=== PATIENT | female | born 1995 | race Caucasian/White ===

== ENCOUNTER 2017-03-09 14:48 | Emergency (ER) | payer MEDICAID, OTHER ==
--- NOTE | 2017-03-09 16:20 | RAD ---
Indication: Fall, back pain. 5 views of the lumbar spine demonstrates straightening of the normal lordosis. Disc spaces all well-preserved. No fracture is noted. IMPRESSION: Straightening of the normal lordosis without fracture.
--- NOTE | 2017-03-09 16:45 | UC ---
Michel Burger Thomas, scribed for Lamont Crooks MD on 03/09/17 at 1607 . Back Pain HPI - HPI Summary HPI Summary: The patient is a 21 year old female who presents at urgent care with pain in the lower back and tail bone after slipping and falling about six days ago. Pain is aggravating by defecation. The patient denies bladder/bowel incontinence , weakness of the legs, and abdominal pain. - History of Current Complaint Chief Complaint: UCBackPain Stated Complaint: BACK INJURY Time Seen by Provider: 03/09/17 15:58 Hx Obtained From: Patient Hx Last Menstrual Period: 02/16/2017 Onset/Duration: Sudden Onset, Lasting Days - about 6 days ago, Still Present, Worse Since Timing: Constant Severity Initially: Moderate Severity Currently: Moderate Pain Scale Used: 0-10 Numeric Associated Signs And Symptoms: Negative: Weakness - of the legs, Abdominal Pain , Bladder Incontinence, Bowel Incontinence - Allergies/Home Medications Allergies/Adverse Reactions: Allergies Allergy/AdvReac Type Severity Reaction Status Date / Time No Known Allergies Allergy Verified 05/17/14 12:07 Home Medications: Home Medications Acetaminophen [Eq Pain Reliever] 1,000 mg PO BID PRN 03/09/17 [History Confirmed 03/09/17] Apri Control Pill 1 tab PO DAILY 03/09/17 [History] Fluoxetine HCl [Prozac] 20 mg PO DAILY 03/09/17 [History Confirmed 03/09/17] Ibuprofen [Advil] 400 mg PO Q4HR PRN 03/09/17 [History Confirmed 03/09/17] Metformin HCl 500 mg PO BID 03/09/17 [History Confirmed 03/09/17] PMH/Surg Hx/FS Hx/Imm Hx Previously Healthy: No - DM, NEGATIVE: HTN - Surgical History Surgical History: None - Family History Known Family History: Positive: Diabetes Negative: Hypertension - Social History Alcohol Use: Weekly Alcohol Amount: 2-3 drinks Substance Use Type: None Smoking Status (MU): Never Smoked Tobacco - Immunization History Most Recent Influenza Vaccination: unknown Most Recent Tetanus Shot: up to date Most Recent Pneumonia Vaccination: never Review of Systems Gastrointestinal: Negative - abdominal pain Musculoskeletal: Other: - Lower back and tail bone pain Is Patient Immunocompromised?: No All Other Systems Reviewed And Are Negative: Yes Physical Exam Triage Information Reviewed: Yes Vital Signs: Initial Vital Signs Temp 98.2 F 03/09/17 15:04 Pulse 100 03/09/17 15:04 Resp 18 03/09/17 15:04 BP 156/91 03/09/17 15:04 Pulse Ox 100 03/09/17 15:04 Vital Signs Reviewed: Yes - Additional Comments General: well-appearing, no pain distress Skin: warm, color reflects adequate perfusion, dry Head: normal Eyes: EOMI, SLIME ENT: normal Neck: supple, nontender Respiratory: CTA, breath sounds present Cardiovascular: RRR Abdomen: soft, nontender Bowel: present Musculoskeletal: Tenderness in the low back of the coccyx. strength/ROM intact Neurological: normal, sensory/motor intact, A&O x3 Psychological: affect/mood appropriate Diagnostics - Radiology L-Spine XR Xray Interpretation: No Acute Changes - Straightening of the normal lordosis without fracture. Dr. Crooks has reviewed this report. Radiology Interpretation Completed By: Radiologist Back Pain Course/Dx - Course Course Of Treatment: Medications Reviewed. BP noted and advised to follow up with PCP. - Differential Dx/Diagnosis Provider Diagnoses: COCCYX CONTUSION. LOW BACK STRAIN. Elevated blood pressure without history of hypertension Discharge - Discharge Plan Condition: Stable Disposition: HOME Prescriptions: traMADol TAB* [Ultram*] 50 mg PO Q6HR PRN #20 tab MDD 4 PRN Reason: Pain Patient Education Materials: Coccyx Injury (ED), Acute Low Back Pain (ED) Referrals: Qi Perdue MD [Primary Care Provider] - Additional Instructions: Your blood pressure was elevated during todays visit; please follow up with your primary care provider within a week for further evaluation. FOLLOW UP WITH YOUR DOCTOR. GET A DONUT PILLOW FOR COMFORT. GET RECHECKED FOR ANY WORSENING OF YOUR CONDITION; WEAKNESS, NUMBNESS, PAIN, LOSS OF CONTROL OF BOWEL OR BLADDER OR QUESTIONS OR CONCERNS. The documentation as recorded by the Michel yuan Thomas accurately reflects the service I personally performed and the decisions made by me, Lamont Crooks MD.
[2017-03-09 16:51] VITALS: BP 128/78
== END 2017-03-09 16:55 | disposition home or self-care (01) ==
LOC: UCEAST 14:48
DX: S30.0XXA Contusion of lower back and pelvis, initial encounter (principal); S39.012A Strain of muscle, fascia and tendon of lower back, initial encounter; W01.0XXA Fall on same level from slipping, tripping and stumbling without subsequent striking against object, initial encounter; Y93.9 Activity, unspecified; Y92.9 Unspecified place or not applicable; R03.0 Elevated blood-pressure reading, without diagnosis of hypertension; E11.9 Type 2 diabetes mellitus without complications; Z79.84 Long term (current) use of oral hypoglycemic drugs
CPT/HCPCS: 72110; 81003; 99212; G0463